=== PATIENT | male | born 1960 | race American Indian/Alaskan Native ===

== ENCOUNTER 2021-10-04 18:27 | Emergency (ER) | payer MEDICARE ==
--- NOTE | 2021-10-04 19:08 | XRay Report ---
Left shoulder, 3 views HISTORY: Limited range of motion COMPARISON: None FINDINGS: No acute fracture is identified. No evidence of glenohumeral or AC joint malalignment. Corticated oss ific density at the superior glenoid may reflect sequela of remote injury. No focal soft tissue abnor mality. IMPRESSION: No acute osseous findings. No evidence of acute fracture or joint malalignment. Signer Name: Brad More MD Signed: 10/04/2021 7:03 PM Workstation Name: [id number]
[2021-10-04] MEDS ORDERED: ACETAMINOPHEN 500 MG TAB PO ONE (22:51)
--- NOTE | 2021-10-04 22:51 | Emergency Department Report ---
Upper Extremity - HPI Chief Complaint: Extremity Injury, Upper Stated Complaint: SHOULDER INJURY Time Seen by Provider: 10/04/21 22:54 Upper Extremity: Left Shoulder Occurred When: Today Severity: mild Symptoms: No Pain with Movement, No Deformity, No Limited Range of Movement, No Numbness, No Weakness, No Swelling, No Bruising/Ecchymosis, No Laceration or Abrasion Other History: Patient is 60-year-old male with MR and history of frequent left shoulder dislocations presents for left shoulder pain and swelling x1 day. Patient is accompanied by caregiver at snf. Patient appears nontoxic with no acute distress there is no abrasion laceration or bleeding. Caregiver advises cannot recall fall or further injury. However arm is swollen intermittently. Symptoms are exacerbated by nothing. Symptoms are relieved by nothing. Caregiver advises just want ensure its not dislocated. ED Review of Systems ROS: Stated complaint: SHOULDER INJURY Other details as noted in HPI Constitutional: denies: chills, fever Eyes: denies: eye pain, eye discharge, vision change ENT: denies: ear pain, throat pain Respiratory: denies: cough, shortness of breath, wheezing Cardiovascular: denies: chest pain, palpitations Endocrine: no symptoms reported Gastrointestinal: denies: abdominal pain, nausea, diarrhea Genitourinary: as per HPI Musculoskeletal: other (Left shoulder pain and swelling) Skin: denies: rash, lesions Neurological: denies: headache, weakness, paresthesias Psychiatric: denies: anxiety, depression Hematological/Lymphatic: denies: easy bleeding, easy bruising ED Past Medical Hx - Past Medical History Hx Seizures: Yes Additional medical history: profound retardation, hep c - Social History Smoking Status: Never Smoker Substance Use Type: None - Medications Home Medications: Home Medications Medication Instructions Recorded Confirmed Last Taken Type Acetaminophen [Acetaminophen TAB] 1,000 mg PO Q6HR PRN #30 tablet 10/04/21 Unknown Rx Upper Extremity Exam - Exam General: Vital signs noted. No distress. Alert and acting appropriately. Head and Torso: No HEENT Abnormality, No Neck Tenderness, No Chest/Lungs Abnormality, No Abdominal Tenderness, No Back Tenderness Shoulder Exam: Yes Normal Range of Motion in Shoulder, No Shoulder Tenderness, No Clavicle Tenderness, No Shoulder Deformity, No AC Joint Tenderness Arm Exam: No Arm/Humerus Tenderness, No Arm Deformity Elbow: Yes Normal Range of Motion in Elbow, No Elbow Tenderness, No Elbow Deformity Forearm: No Forearm Tenderness, No Forearm Deformity, No Pain with Pronation, No Pain with Supination Wrist: Yes Normal ROM in Wrist, No Wrist Tenderness, No Wrist Deformity, No Snuffbox Tenderness, No Pain with Axial Thumb Compression Hand: Yes Normal ROM in Digit(s), No Hand Tenderness, No Hand Deformity, No Digit Tenderness, No Digit(s) Deformity, No Tendon Dysfunction CMS Exam: Yes Normal Distal Pulses, Yes Normal Capillary Refill, Yes Normal Distal Sensation, No Broken Skin ED Course Vital Signs 10/04/21 18:30 Temperature 98.2 F Pulse Rate 93 H Respiratory 18 Rate Blood Pressure 139/94 O2 Sat by Pulse 95 Oximetry ED Medical Decision Making - Radiology Data Radiology results: report reviewed, image reviewed Left shoulder, 3 views HISTORY: Limited range of motion COMPARISON: None FINDINGS: No acute fracture is identified. No evidence of glenohumeral or AC joint malalignment. Corticated ossific density at the superior glenoid may reflect sequela of remote injury. No focal soft tissue abnormality. IMPRESSION: No acute osseous findings. No evidence of acute fracture or joint malalignment. Signer Name: Merly Soriano MD Signed: 10/04/2021 7:03 PM Workstation Name: [id number] Transcribed By: JS Dictated By: MERLY SORIANO MD Electronically Authenticated By: MERLY SORIANO MD Signed Date/Time: 10/04/211902 DD/ 01 TD/TT: Print Cancel - Medical Decision Making X-ray no fracture no subluxation no dislocation no soft tissue tissue abnormality. Distal pulses intact +2. Licensed Therapist are equal. No pain with simulated axial thumb loading. No pain with pronation or supination. Range of motion is intact. Plan DC to home, sling, follow-up with primary care doctor in 2 to 3 days. Tylenol as needed for pain. Caregiver verbalized agreement understanding with discharge plan. Patient DC'd to home in stable condition at this time. Patient is currently amatory appears nontoxic and at baseline per caregiver. Critical care attestation.: If time is entered above; I have spent that time in minutes in the direct care of this critically ill patient, excluding procedure time. ED Disposition Clinical Impression: Left shoulder strain Qualifiers: Encounter type: initial encounter Qualified Code(s): S46.912A - Strain of unspecified muscle, fascia and tendon at shoulder and upper arm level, left arm, initial encounter Disposition: HOME / SELF CARE / HOMELESS Is pt being admited?: No Does the pt Need Aspirin: No Condition: Stable Instructions: Muscle Strain Additional Instructions: Take Tylenol as needed for pain, use sling as needed, follow-up with your primary care doctor in 2 to 3 days. Return to emergency department should symptoms worsen. Prescriptions: Acetaminophen [Acetaminophen TAB] 1,000 mg PO Q6HR PRN #30 tablet PRN Reason: Pain Referrals: WERNER GARRETT MD [Staff Physician] - 3-5 Days Forms: Work/School Release Form(ED) Time of Disposition: 23:00
[2021-10-04 23:40] VITALS: BP 142/96
== END 2021-10-04 23:59 | disposition home or self-care (01) ==
LOC: ED 18:27
DX: S46.912A Strain of unspecified muscle, fascia and tendon at shoulder and upper arm level, left arm, initial encounter (principal); R56.9 Unspecified convulsions; X58.XXXA Exposure to other specified factors, initial encounter; Y93.89 Activity, other specified; Y92.89 Other specified places as the place of occurrence of the external cause; Y99.8 Other external cause status
CPT/HCPCS: 99283